=== PATIENT | female | born 1990 | race Hispanic/Latino ===

== ENCOUNTER 2023-05-22 14:13 | Inpatient (IN) | payer MEDICAID, OTHER, SELFPAY ==
[2023-05-22] MEDS ORDERED: Misoprostol 200 MCG TAB PR PRN (15:20)
[2023-05-22] MEDS ORDERED: Promethazine HCl 25 MG/ML VIAL IM PRN (15:20)
[2023-05-22] MEDS ORDERED: Acetaminophen 500 MG TAB PO PRN (15:20)
[2023-05-22] MEDS ORDERED: Ibuprofen 800 MG TAB PO PRN (15:20)
[2023-05-22] MEDS ORDERED: Ondansetron PF 4 MG/2 ML Vial IVP PRN (15:20)
[2023-05-22] MEDS ORDERED: fentaNYL 50 mcg/mL 1 mL Vial SLOW IVP PRN (15:20)
[2023-05-22] MEDS ORDERED: Methylergonovine 0.2 MG/ML VIAL IM PRN (15:20)
[2023-05-22] MEDS ORDERED: Docusate 100 MG CAP PO PRN (15:20)
[2023-05-22] MEDS ORDERED: Tranexamic Acid 1,000 MG/10 ML VIAL IVP PRN (15:20)
[2023-05-22] MEDS ORDERED: Lidocaine 1% (PF) 30 ML VIAL SC PRN (15:20)
[2023-05-22] MEDS ORDERED: Carboprost 250 MCG/ML AMP IM PRN (15:20)
[2023-05-22] MEDS ORDERED: Diphenoxylate HCl/Atropine Tablet PO PRN (15:20)
[2023-05-22] MEDS ORDERED: hydrALAZINE 20 MG/ML VIAL SLOW IVP PRN (15:20)
[2023-05-22] MEDS ORDERED: Oxytocin 30 units/NS 500 ML 500 ML IV SCH ×2 (15:30)
[2023-05-22 16:28] VITALS: BMI 24.9
[2023-05-22 18:24] LABS: Hematocrit 34.9 % (34.9-44.5); Hemoglobin 12.5 g/dL (12.0-15.5); Mean Corpuscular HGB CONC 35.8 g/dL (32.0-36.0); Mean Corpuscular Hemoglobin 31.4 pg (27.0-33.0); Mean Corpuscular Volume 87.7 fl (81.6-98.3); Mean Platelet Volume 10.6 fl (7.4-10.4); Platelet Count 212 10x3/uL (150-450); Red Blood Cell (RBC) Count 3.98 10x6/uL (3.90-5.03); White Blood Cell (WBC) Count 8.9 10x3/uL (3.5-10.5)
[2023-05-22] MEDS: Misoprostol 100 MCG TAB VAG SCH (18:24)
[2023-05-22 18:58] LABS: HBSAg Index 0.21 S/CO (0-0.99); Hep B Surf Ag - L&D Non-Reactive S/CO (NonReactive)
[2023-05-22 19:00] LABS: Syphilis Antibody Nonreactive (Nonreactive); Syphilis Antibody Index 0.05 S/CO (<1.00 Non-Reactive)
[2023-05-22] MEDS: Misoprostol 100 MCG TAB PO SCH (22:41)
[2023-05-23] MEDS ORDERED: Misoprostol 100 MCG TAB VAG SCH ×2 (03:30)
[2023-05-23] MEDS ORDERED: ePHEDrine Sulfate 50 MG/10 ML VIAL SLOW IVP PRN (07:30)
[2023-05-23] MEDS ORDERED: Promethazine HCl 25 MG/ML VIAL IM PRN (07:30)
[2023-05-23] MEDS ORDERED: Communication Order-Pharmacy FS SCH (07:30)
[2023-05-23] MEDS ORDERED: Ondansetron PF 4 MG/2 ML Vial IVP PRN (07:30)
[2023-05-23] MEDS ORDERED: Naloxone HCl 0.4 mg/ml Vial IVP PRN ×2 (07:30)
[2023-05-23] MEDS ORDERED: diphenhydrAMINE 50 MG/ML VIAL IVP PRN (07:30)
[2023-05-23] MEDS ORDERED: Moisturizing Cream (Eucerin) 113 GM JAR TOP PRN (07:30)
[2023-05-23] MEDS ORDERED: Lactated Ringer's 500 ML IV PRN (07:30)
[2023-05-23] MEDS ORDERED: Acetaminophen 325 MG TAB PO PRN (07:30)
[2023-05-23] MEDS: fentaNYL/Ropivacaine Epidural 100 ML ONE (08:28)
[2023-05-23] MEDS: fentaNYL 2 mcg/Ropivacaine 0.2% Epidural 100 ML CADD EPIDURAL SCH (21:10)
[2023-05-23] MEDS: Lactated Ringer's 1,000 ML IV SCH (22:13)
[2023-05-24] MEDS ORDERED: diphenhydrAMINE 25 MG CAP PO PRN (12:06)
[2023-05-24] MEDS ORDERED: Lanolin Ointment 7 GM TUBE TOP PRN (12:06)
[2023-05-24] MEDS ORDERED: Misoprostol 200 MCG TAB PR PRN (12:06)
[2023-05-24] MEDS ORDERED: Preparation H Ointment 28 GM TUBE PR PRN (12:06)
[2023-05-24] MEDS ORDERED: Benzocaine-Menthol 82.5 ML CAN TOP PRN (12:06)
[2023-05-24] MEDS ORDERED: Methylergonovine 0.2 MG/ML VIAL IM PRN (12:06)
[2023-05-24] MEDS ORDERED: hydrALAZINE 20 MG/ML VIAL SLOW IVP PRN (12:06)
[2023-05-24] MEDS ORDERED: Bisacodyl 10 MG SUPP PR PRN (12:06)
[2023-05-24] MEDS ORDERED: Boostrix 0.5 ML (Tdap) VIAL (>/=7 yrs of age) IM ONE (12:06)
[2023-05-24] MEDS ORDERED: Milk Of Magnesia 30 ML UDCUP PO PRN (12:06)
[2023-05-24 12:22] LABS: DRVVT Confirm 29.5; HEX PHOS LA Tube 1 37.5 SEC; HEX PHOS LA Tube 2 37.2 SEC; Hexagonal Phospholipid Neut 0.2 SEC (0-8.0)
[2023-05-24] MEDS ORDERED: Bupivacaine 0.25% HCL 30 ML VIAL ONE (12:27)
[2023-05-24 12:40] LABS: PTT 27.3 sec (22.9-36.1); Prothrombin Time 12.7 sec (12.0-14.7)
[2023-05-24] MEDS ORDERED: Docusate 100 MG CAP PO SCH ×2 (13:00→21:00)
[2023-05-24] MEDS ORDERED: Ferrous Sulfate 325 MG TAB PO SCH ×2 (13:00→17:00)
[2023-05-24] MEDS ORDERED: Prenatal Vitamin 1 TAB PO SCH (13:00)
[2023-05-24] MEDS ORDERED: Acetaminophen 500 MG TAB PO SCH (13:00)
[2023-05-24] MEDS ORDERED: Ibuprofen 800 MG TAB PO SCH (14:00)
[2023-05-24 15:45] LABS: Cardiolipin IgA Ab 1.6 APL-U/mL (<14 Negative); Cardiolipin IgM Ab Less than 0.9 MPL-U/mL (<10 Negative); EliA APS New Method **** NEW METHOD ****; beta-2-Glycoprotein I IgA Ab 0.9 U/mL (<7 Negative); beta-2-Glycoprotein I IgG Ab 1.2 U/mL (<7 Negative); beta-2-Glycoprotein I IgM Abs Less than 2.4 U/mL (<7 Negative)
[2023-05-25] MEDS ORDERED: Prenatal Vitamin 1 TAB PO SCH (09:00)
== END 2023-05-24 14:16 | disposition home or self-care (01) | DRG 806 ==
LOC: CSHERS 14:13 → CSHLD 15:00
PROVIDERS: ADMIT Obstetrics & Gynecology; ATTEND Obstetrics & Gynecology
PROC: 10907ZC Drainage of Amniotic Fluid, Therapeutic from Products of Conception, Via Natural or Artificial Opening (ICD-10-PCS; 2023-05-23)
PROC: 10E0XZZ Delivery of Products of Conception, External Approach (ICD-10-PCS; principal; 2023-05-24)
DX: O36.8130 Decreased fetal movements, third trimester, not applicable or unspecified (principal); O36.4XX0 Maternal care for intrauterine death, not applicable or unspecified; Z37.1 Single stillbirth; O99.02 Anemia complicating childbirth; Z3A.35 35 weeks gestation of pregnancy; D50.9 Iron deficiency anemia, unspecified
CPT/HCPCS: 36415; 51702; 85027; 85460; 85598; 85610; 85613; 85730; 86146; 86147; 86780; 86850; 86900; 86901; 87340; 88307; 99285; J0665